=== PATIENT | male | born 1945 | race Caucasian/White ===

== ENCOUNTER → 2023-12-01 08:58 | Outpatient (REF) | payer OTHER, SELFPAY ==
[2023-12-01 09:54] LABS: Hematocrit 38.4 % (39.0-52.0); Hemoglobin 13.1 g/dL (13.0-18.0)
[2023-12-01 10:40] LABS: Protein/creatinine Ratio 0.2; Urine Protein 19 mg/dl
[2023-12-01 10:59] LABS: PSA, Total - Diagnostic 0.11 ng/ml (0.0-4.0)
[2023-12-01 11:54] LABS: Albumin 4.4 g/dl (3.5-5.0); Blood Urea Nitrogen 36 mg/dl (9-20); Calcium 9.1 mg/dl (8.4-10.2); Carbon Dioxide 22 mmol/L (22-30); Chloride 102 mmol/L (98-107); Glucose 180 mg/dl (70-99); HDL Cholesterol 29 mg/dl; Phosphorus 3.9 mg/dl (2.5-4.5); Potassium 4.8 mmol/L (3.5-5.1); Sodium 138 mmol/L (135-145); Total Cholesterol 127 mg/dl (50-199); eGFR 25.82
[2023-12-01 12:03] LABS: LDL Cholesterol, Calculated 5 mg/dl; Triglyceride 467 mg/dl (10-149); Very Low Density Lipoprotein 93 mg/dl (0-30)
[2023-12-01 12:04] LABS: LDL Cholesterol, Direct 37 mg/dl
[2023-12-01 12:31] LABS: Glycohemoglobin (HgbA1c) 7.6 % (4.0-5.6)
[2023-12-03 01:39] LABS: % Free Testosterone 2.2 % (1.6-2.9); Free Testosterone 33 pg/mL (47-244); Sex Hormone Binding Globulin 19 nmol/L (19-76); Total Testosterone 148 ng/dL (300-720)
== END ==
LOC: REG 08:58
PROVIDERS: ATTENDING PHYSICIAN Internal Medicine Cardiovascular Disease; FAMILY PHYSICIAN Internal Medicine
DX: I25.118 Atherosclerotic heart disease of native coronary artery with other forms of angina pectoris (principal); E78.5 Hyperlipidemia, unspecified; E11.9 Type 2 diabetes mellitus without complications; N18.4 Chronic kidney disease, stage 4 (severe); C61 Malignant neoplasm of prostate; Z79.818 Long term (current) use of other agents affecting estrogen receptors and estrogen levels
CPT/HCPCS: 36415; 80061; 80069; 82570; 83036; 83721; 84153; 84156; 84270; 84402; 84403; 85014; 85018

== ENCOUNTER → 2024-04-04 10:26 | Outpatient (REF) | payer OTHER, SELFPAY ==
[2024-04-04 11:19] LABS: Hematocrit 37.6 % (39.0-52.0); Hemoglobin 13.3 g/dL (13.0-18.0)
[2024-04-04 11:40] LABS: Glycohemoglobin (HgbA1c) 7.5 % (4.0-5.6)
[2024-04-04 11:57] LABS: Albumin 4.3 g/dl (3.5-5.0); Blood Urea Nitrogen 27 mg/dl (9-20); Calcium 9.2 mg/dl (8.4-10.2); Carbon Dioxide 18 mmol/L (22-30); Chloride 110 mmol/L (98-107); Glucose 155 mg/dl (70-99); Phosphorus 3.6 mg/dl (2.5-4.5); Potassium 4.5 mmol/L (3.5-5.1); Sodium 139 mmol/L (135-145); eGFR 33.74
[2024-04-04 12:06] LABS: Intact PTH 116.8 pg/ml (13.6-85.8)
== END ==
LOC: REG 10:26
PROVIDERS: ATTENDING PHYSICIAN Specialist; FAMILY PHYSICIAN Internal Medicine
DX: N18.4 Chronic kidney disease, stage 4 (severe) (principal); E11.21 Type 2 diabetes mellitus with diabetic nephropathy
CPT/HCPCS: 36415; 80069; 83036; 83970; 85014; 85018

== ENCOUNTER → 2024-10-12 09:54 | Outpatient (REF) | payer OTHER, SELFPAY ==
[2024-10-12 11:08] LABS: % Basophils 0.1 % (0-2); % Immature Granulocytes 0.5 % (0-0.5); % Lymphocytes 11.7 % (20.5-51.1); % Neutrophils 83.7 % (42.2-75.2); Absolute Immature Granulocytes 0.1 10^3/uL (0-0.05); Absolute Lymphocytes 1.7 10^3/uL (1.2-3.4); Absolute Monocytes 0.6 10^3/uL (0.1-0.6); Absolute Neutrophils 12.4 10^3/uL (1.4-6.5); Hematocrit 41.9 % (39.0-52.0); Hemoglobin 14.1 g/dL (13.0-18.0); Mean Corp Hgb Conc. 33.7 g/dL (33.0-37.0); Mean Corpuscular Hgb 31.7 pg (27.0-31.0); Mean Corpuscular Volume 94.2 fL (80.0-94.0); Mean Platelet Volume 10.2 fL (7.4-10.4); Nucleated Red Blood Cells % 0 % (-); Platelet Count 224 10^3/uL (130-400); Red Blood Cell Count 4.45 10^6/uL (4.70-6.10); Red Cell Dist. Width 13.3 % (11.5-14.5); White Blood Cell Count 14.9 10^3/uL (4.8-10.8)
[2024-10-12 11:42] LABS: Urine Albumin Negative (Neg - Trace); Urine Bilirubin Negative (Negative); Urine Character Clear (Clear); Urine Color Yellow; Urine Glucose 3+ (Negative); Urine Ketone Negative (Negative); Urine Leukocyte Negative (Negative); Urine Nitrite Negative (Negative); Urine Occult Blood 1+ (Negative); Urine Specific Gravity 1.015 (<1.030); Urine Urobilinogen Negative (Neg - 1+)
[2024-10-12 11:58] LABS: ALT (SGPT) 22 U/L (0-50); AST (SGOT) 33 U/L (17-59); Albumin 4.6 g/dl (3.5-5.0); Alkaline Phosphatase 93 U/L (38-126); Blood Urea Nitrogen 49 mg/dl (9-20); Carbon Dioxide 20 mmol/L (22-30); Chloride 104 mmol/L (98-107); Glucose 162 mg/dl (70-99); HDL Cholesterol 37 mg/dl; LDL Cholesterol, Calculated 21 mg/dl; Phosphorus 3.8 mg/dl (2.5-4.5); Potassium 4.9 mmol/L (3.5-5.1); Sodium 138 mmol/L (135-145); Total Bilirubin 0.7 mg/dl (0.2-1.3); Total Cholesterol 135 mg/dl (50-199); Total Protein 7.4 g/dl (6.3-8.2); Triglyceride 388 mg/dl (10-149); Very Low Density Lipoprotein 77 mg/dl (0-30); eGFR 31.82
[2024-10-12 12:17] LABS: Urine Amorphous Seen; Urine Granular Cast 0-2 /LPF (0); Urine Hyaline Cast 0-2 /LPF (0-2)
[2024-10-12 12:18] LABS: Urine Red Blood Cell 0-2 /HPF (0-2); Urine White Cell 0-2 /HPF (0-5)
[2024-10-12 12:29] LABS: TSH Reflex To Free T4 1.52 uIU/ml (0.47-4.68)
[2024-10-12 14:40] LABS: Protein/creatinine Ratio 0.3; Urine Protein 17 mg/dl
[2024-10-12 14:44] LABS: Microalbumin, Random Urine 3.5 mg/dl (0.6-1.7); Microalbumin/creatinine Ratio 56.5 mg/g
== END ==
LOC: REG 09:54
PROVIDERS: ATTENDING PHYSICIAN Specialist; FAMILY PHYSICIAN Internal Medicine Cardiovascular Disease; REFERRING PHYSICIAN Nurse Practitioner
DX: N18.32 Chronic kidney disease, stage 3b (principal); R53.83 Other fatigue; E78.5 Hyperlipidemia, unspecified; Z01.818 Encounter for other preprocedural examination; I10 Essential (primary) hypertension; E11.9 Type 2 diabetes mellitus without complications
CPT/HCPCS: 36415; 80053; 80061; 81003; 81015; 82043; 82570; 84100; 84156; 84443; 85025

== ENCOUNTER → 2025-03-06 10:55 | Outpatient (REF) | payer OTHER, SELFPAY ==
[2025-03-06 11:51] LABS: % Basophils 0.8 % (0-2); % Eosinophils 1.8 % (0-6); % Immature Granulocytes 0.1 % (0-0.5); % Lymphocytes 28.9 % (20.5-51.1); % Monocytes 7.4 % (1.7-9.3); Absolute Basophils 0.1 10^3/uL (0-0.2); Absolute Eosinophils 0.1 10^3/uL (0-0.7); Absolute Monocytes 0.5 10^3/uL (0.1-0.6); Absolute Neutrophils 4.3 10^3/uL (1.4-6.5); Hematocrit 39.1 % (39.0-52.0); Hemoglobin 13.3 g/dL (13.0-18.0); Mean Corpuscular Volume 94.2 fL (80.0-94.0); Nucleated Red Blood Cells % 0 % (-); Platelet Count 179 10^3/uL (130-400); Red Blood Cell Count 4.15 10^6/uL (4.70-6.10); Red Cell Dist. Width 13.5 % (11.5-14.5); White Blood Cell Count 7.1 10^3/uL (4.8-10.8)
[2025-03-06 12:18] LABS: ALT (SGPT) 17 U/L (0-50); AST (SGOT) 18 U/L (17-59); Albumin 4.2 g/dl (3.5-5.0); Alkaline Phosphatase 83 U/L (38-126); Blood Urea Nitrogen 23 mg/dl (9-20); Calcium 9.1 mg/dl (8.4-10.2); Carbon Dioxide 22 mmol/L (22-30); Chloride 109 mmol/L (98-107); Glucose 195 mg/dl (70-99); Potassium 4.7 mmol/L (3.5-5.1); Sodium 140 mmol/L (135-145); Total Bilirubin 0.8 mg/dl (0.2-1.3); Total Protein 6.8 g/dl (6.3-8.2); eGFR 31.63
[2025-03-06 14:16] LABS: Glycohemoglobin (HgbA1c) 8.4 % (4.0-5.6)
== END ==
LOC: REG 10:55
PROVIDERS: ATTENDING PHYSICIAN Hospitalist; FAMILY PHYSICIAN Internal Medicine
DX: E11.22 Type 2 diabetes mellitus with diabetic chronic kidney disease (principal); Z01.818 Encounter for other preprocedural examination
CPT/HCPCS: 36415; 80053; 83036; 85025

== ENCOUNTER → 2025-06-06 10:40 | Outpatient (REF) | payer OTHER, SELFPAY ==
[2025-06-06 13:25] LABS: Glycohemoglobin (HgbA1c) 8.3 % (4.0-5.6)
== END ==
LOC: REG 10:40
PROVIDERS: ATTENDING PHYSICIAN Hospitalist; FAMILY PHYSICIAN Internal Medicine
DX: E11.65 Type 2 diabetes mellitus with hyperglycemia (principal)
CPT/HCPCS: 36415; 83036

== ENCOUNTER → 2025-09-17 10:20 | Outpatient (REF) | payer OTHER, SELFPAY ==
[2025-09-17 11:17] LABS: Hematocrit 41.2 % (39.0-52.0); Hemoglobin 13.9 g/dL (13.0-18.0)
[2025-09-17 11:51] LABS: Microalb - Urine Creatinine 84.100 mg/dl
[2025-09-17 11:55] LABS: Microalbumin, Random Urine 5.0 mg/dl (0.6-1.7)
[2025-09-17 11:59] LABS: Albumin 4.3 g/dl (3.5-5.0); Blood Urea Nitrogen 29 mg/dl (9-20); Calcium 9.0 mg/dl (8.4-10.2); Carbon Dioxide 22 mmol/L (22-30); Chloride 107 mmol/L (98-107); Glucose 160 mg/dl (70-99); Potassium 5.4 mmol/L (3.5-5.1); Sodium 137 mmol/L (135-145); eGFR 31.63
[2025-09-17 12:04] LABS: Glycohemoglobin (HgbA1c) 7.4 % (4.0-5.9)
[2025-09-17 12:12] LABS: Vitamin D, 25-OH*** 65.4 ng/mL (30-80)
== END ==
LOC: REG 10:20
PROVIDERS: ATTENDING PHYSICIAN Hospitalist
DX: E11.65 Type 2 diabetes mellitus with hyperglycemia (principal); N18.32 Chronic kidney disease, stage 3b
CPT/HCPCS: 36415; 80069; 82043; 82306; 82570; 83036; 83970; 84156; 85014; 85018